=== PATIENT | male | born 1960 | race Caucasian/White ===

== ENCOUNTER 2023-07-02 13:18 | Emergency (ER) | payer BC, SELFPAY ==
[2023-07-02 13:26] VITALS: BP 125/94; PULSE 89; RESP 20; TEMP 36.8; O2SAT 97
--- NOTE | 2023-07-02 14:00 | ED.EYEPROB ---
HPI - Eye Problem General Chief complaint: Eye Problems Stated complaint: left eye crusty and itchy Source: patient Mode of arrival: ambulatory Limitations: no limitations History of Present Illness HPI Narrative: 63 y/o male presented for c/o left eye redness, drainage and irritation. Woke this morning with eye crusted, and yellow drainage has progressed throughout the day. States he has rubbed the eye and now feels like something is in the eye. Denies sick contacts. No treatment [employer]. Denies headache, vision changes, dizziness. MD chief complaint: eye pain Related Data Home Medications Medication Instructions Recorded Confirmed lisinopril 10 mg tablet 10 mg PO DAILY 07/02/23 07/02/23 prednisone 5 mg tablet 5 mg PO DAILY 07/02/23 07/02/23 Allergies Allergy/AdvReac Type Severity Reaction Status Date / Time No Known Allergies Allergy Verified 07/02/23 13:48 Review of Systems Review of Systems: CONSTITUTIONAL: Denies body aches, fever, chills EYES:Endorses swelling, redness and pain to left eye; FB sensation, denies photophobia, visual changes ENT: Denies rhinorrhea, congestion, sore throat, or otalgia. CARDIOVASCULAR: Denies chest pain, palpitations RESPIRATORY: Denies cough or dyspnea. GASTROINTESTINAL: Denies abdominal pain, nausea, vomiting, or diarrhea. SKIN: Denies rash, itching, or wounds. MUSCULOSKELETAL: Denies back pain, joint pain, or myalgia. NEUROLOGIC: Denies headache, numbness, tingling, or weakness. All systems reviewed & are unremarkable except as noted in HPI and below PMFSH Past Medical History Medical History (Updated 07/02/23 @ 15:10 by Baylee Campbell APRN) No pertinent past medical history Comments At time of signature, I have reviewed and agree with nursing past medical, surgical, social and family history unless otherwise noted. Please see nursing chart for further information. There is no relevant family history pertinent to the presenting complaint Exam Narrative: GENERAL: Well-appearing HEAD: Normocephalic, atraumatic. EYES: Left conjunctival injection, large amount purulent drainage; left periorbital redness without swelling. PERRLA, EOMI. Lid eversion shows no FB, no FB or corneal abrasion on luong lamp exam. ENT: Mucous membranes pink and moist. No rhinorrhea. TMs normal bilaterally. Throat normal. Uvula midline. CHEST: Clear to auscultation. HEART: Regular rate and rhythm. ABDOMEN: Soft, nontender, nondistended SKIN: Warm, dry, no rash. Normal skin turgor. NEURO: No focal deficits. Alert and oriented x3 PSYCH: Normal affect. Course Course Emergency Course: Patient is aware of diagnosis, understands and agrees to treatment plan. Anticipatory guidance given. Patient agrees to follow-up as directed and is aware of reasons to seek care at the emergency department. Portions of this record may have been created with voice recognition software Level of Care: Express Care Visit Vital Signs Vital signs: Vital Signs Temperature 98.2 F 07/02/23 13:26 Pulse Rate 89 07/02/23 13:26 Respiratory Rate 20 07/02/23 13:26 Blood Pressure 125/94 H 07/02/23 13:26 Pulse Oximetry 97 07/02/23 13:26 Oxygen Delivery Room Air 07/02/23 13:26 Temperature 98.2 F 07/02/23 13:26 Pulse Rate 89 07/02/23 13:26 Respiratory Rate 20 07/02/23 13:26 Blood Pressure 125/94 H 07/02/23 13:26 Pulse Oximetry 97 07/02/23 13:26 Oxygen Delivery Room Air 07/02/23 13:26 Procedures FB Removal Eye Foreign Body #1: Foreign Body Removal Date: 07/02/23 Location: eye (L) Topical anesthetic used: tetracaine Evidence of corneal penetration: No Patient tolerated procedure: well and no complications Foreign Body Removal Narrative: left eye irrigated with eye wash. No corneal abrasion or foreign body noted on Wood's lamp exam. Patient tolerated well. MDM - Eye Problem MDM Narrative Medical decision nick
== END 2023-07-02 14:37 | disposition home or self-care (01) ==
PROVIDERS: Emergency Provider Nurse Practitioner Family
DX: H10.9 Unspecified conjunctivitis (principal); I10 Essential (primary) hypertension; M19.90 Unspecified osteoarthritis, unspecified site
CPT/HCPCS: 99213; A9270; G0463

== ENCOUNTER 2023-07-04 15:29 | Emergency (ER) | payer BC, SELFPAY ==
[2023-07-04 15:39] VITALS: BP 121/85; PULSE 86; RESP 16; TEMP 36.2; O2SAT 98
--- NOTE | 2023-07-04 16:22 | ED.URI ---
HPI - URI/Sore Throat General Chief Complaint: Upper Respiratory Infection Stated Complaint: Cough Time Seen by Provider: 07/04/23 16:22 Source: patient, RN notes reviewed and old records reviewed Mode of arrival: ambulatory Limitations: no limitations History of Present Illness HPI Narrative: 63 year old male presents to express care with complaints of cough, body aches, chills, green sputum, no shortness of breath or known fevers since last evening. Patient reports that he was seen in the clinic yesterday for pink eye but symptoms of cough etc did start till later in day. Patient reports that he has taken NyQuil for his symptoms, denies any known fevers but states chills and body aches, and fatigue. Patient is daily smoker denies any shortness of breath or any wheezing. MD elicited complaint: cough, rhinorrhea and nasal congestion Pertinent past history: other (tobacco abuse) Onset (ago): day(s) (1) Consistency: constant Pain scale (0-10): 5 Able to tolerate fluids by mouth: Yes Treatments prior to arrival: other (NyQuil) Related Data Home Medications Medication Instructions Recorded Confirmed lisinopril 5 mg tablet 5 mg PO DAILY 07/04/23 07/04/23 polymyxin B sulfate 10,000 See Rx Instructions .Route .COMPLEX 07/04/23 07/04/23 unit-trimethoprim 1 mg/mL eye drops prednisone 5 mg tablet 5 - 10 mg PO DAILY 07/04/23 07/04/23 Allergies Allergy/AdvReac Type Severity Reaction Status Date / Time No Known Allergies Allergy Verified 07/04/23 16:05 Review of Systems Review of Systems: CONSTITUTIONAL: Reports malaise, chills, sweats, no known fever. EYES: Denies visual changes, redness, or discharge. ENT: Reports rhinorrhea, congestion, sinus pain,no otalgia and no sore throat. CARDIOVASCULAR: Denies chest pain, palpitations, or edema. RESPIRATORY: Reports cough.? Denies dyspnea. GASTROINTESTINAL: Denies abdominal pain, nausea, vomiting, diarrhea SKIN: Denies rash or itching. MUSCULOSKELETAL: positive for myalgia. NEUROLOGIC: Denies headache. All systems reviewed & are unremarkable except as noted in HPI and below PMFSH Past Medical History Medical History (Updated 07/06/23 @ 16:43 by Alcira Centeno NP) Arthritis Hypertension Tobacco abuse Surgical History Surgical History (Updated 07/06/23 @ 16:46 by Alcira Centeno NP) History of left knee surgery torn cartilage Social History Social History Smoking status: Current every day smoker Tobacco type: cigarettes Substance use type: does not use Living arrangements: with family Gender identity (if verbalized by the patient): Male Comments At time of signature, agree with nursing past medical, surgical, social and family history. There is no relevant family history pertinent to the presenting complaint Exam Narrative: GENERAL: Well-appearing, well-nourished, and in no acute distress. HEAD: Normocephalic EYES: PERRLA, conjunctivae clear ENT: Nares clear, turbinates edematous and erythematous,light yellow discharge. Mucous membranes moist. TM pearly santamaria with dull light reflex bilaterally; no tragal tenderness. Oropharynx erythematous without lesions. Tonsils not enlarged and without exudate, no drooling, no hoarseness, no trismus, uvula midline.post nasal drainage NECK: Supple. No lymphadenopathy CHEST: Clear to auscultation, breath sounds equal. No wheezing, rhonchi, rales, or stridor. No respiratory distress, speaks in full sentences.positive for coughSAO2 98% on room air HEART: Regular rate and rhythm. No murmur heard. SKIN: Warm, dry, no rash. NEURO: Alert and oriented x3. PSYCH: Normal mood and affect Course Course Emergency Course: Patient is aware of diagnosis, understands and agrees to treatment plan.? Anticipatory guidance given.? Patient agrees to follow-up as directed and is aware of reasons to seek care at the emergency department.
== END 2023-07-04 16:40 | disposition home or self-care (01) ==
PROVIDERS: Emergency Provider Registered Nurse
DX: U07.1 COVID-19 (principal); F17.210 Nicotine dependence, cigarettes, uncomplicated; M19.90 Unspecified osteoarthritis, unspecified site; I10 Essential (primary) hypertension
CPT/HCPCS: 87426; 87804; 99213; C9803; G0463